=== PATIENT | male | born 1995 | race African-American/Black ===

== ENCOUNTER 2018-07-03 03:21 | Emergency (ER) | payer OTHER ==
[~2018-07-03] VITALS: Ht 175.3 cm; Wt 81.6 kg
[2018-07-03 03:25] VITALS: BP 113/74
[2018-07-03] MEDS ORDERED: IBUPROFEN 600 MG TABLET PO ONE ×2 (03:56→04:00)
--- NOTE | 2018-07-03 04:22 | NUR ---
Patient discharged in custody in stable condition. Written and verbal after care instructions given. Patient verbalizes understanding of instruction.
== END 2018-07-03 04:26 ==
LOC: ER 03:23
DX: S43.492A Other sprain of left shoulder joint, initial encounter (principal); S60.221A Contusion of right hand, initial encounter; F41.9 Anxiety disorder, unspecified; F17.200 Nicotine dependence, unspecified, uncomplicated; X58.XXXA Exposure to other specified factors, initial encounter; Y93.89 Activity, other specified; Y92.89 Other specified places as the place of occurrence of the external cause; Y99.8 Other external cause status
CPT/HCPCS: 73130-TC